=== PATIENT | female | born 1950 | race Caucasian/White ===

== ENCOUNTER 2016-10-08 17:50 | Emergency (ER) | payer OTHER ==
[~2016-10-08] VITALS: Ht 177.8 cm; Wt 73.5 kg
[2016-10-08 19:34] VITALS: BP 150/89
== END 2016-10-08 19:35 | disposition home or self-care (01) ==
LOC: ER 17:50
DX: S62.614A Displaced fracture of proximal phalanx of right ring finger, initial encounter for closed fracture (principal); S62.306A Unspecified fracture of fifth metacarpal bone, right hand, initial encounter for closed fracture; W18.49XA Other slipping, tripping and stumbling without falling, initial encounter; Y93.89 Activity, other specified; Y92.89 Other specified places as the place of occurrence of the external cause; Y99.8 Other external cause status

== ENCOUNTER → 2018-06-04 | Outpatient (CLI) | payer OTHER | LOC: MRI 13:52 | DX: S72.091A Other fracture of head and neck of right femur, initial encounter for closed fracture (principal); R60.0 Localized edema; X58.XXXA Exposure to other specified factors, initial encounter; Y93.89 Activity, other specified; Y92.89 Other specified places as the place of occurrence of the external cause; Y99.8 Other external cause status ==